=== PATIENT | male | born 1975 | race Caucasian/White ===

== ENCOUNTER 2018-08-14 18:24 | Emergency (ER) | payer SELFPAY ==
[~2018-08-14] VITALS: Ht 167.6 cm; Wt 76.7 kg
[2018-08-14 18:29] VITALS: Ht 167.6 cm; Wt 76.7 kg
[2018-08-14 20:46] VITALS: BP 132/82
== END 2018-08-14 20:46 | disposition home or self-care (01) ==
LOC: ED 18:24
DX: H92.02 Otalgia, left ear (principal)